=== PATIENT | male | born 1965 | race Caucasian/White ===

== ENCOUNTER 2018-09-21 11:35 | Emergency (ER) | payer MEDICAID, OTHER ==
[2018-09-21 12:23] VITALS: BP 181/91; PULSE 86; RESP 16; TEMP 97.8; O2SAT 100
[2018-09-21 13:30] LABS: BASOPHILS % (AUTO) 1 % (0-3); EOSINOPHILS % (AUTO) 3 % (0-9); HEMATOCRIT 43 % (39-53); HEMOGLOBIN 14.2 gm/dl (13.5-17.7); MEAN CORPUSCULAR HEMOGLOBIN 29.1 pg (27.0-32.0); MEAN CORPUSCULAR HGB CONC 32.8 gm/dl (32.0-36.0); MEAN CORPUSCULAR VOLUME 89 fL (80-100); MONOCYTES % (AUTO) 10.1 % (0-12); NEUTROPHILS % (AUTO) 61.6 % (37-80)
[2018-09-21 13:51] LABS: AMPHETAMINES NEGATIVE (NEGATIVE); BARBITUATES NEGATIVE (NEGATIVE); BENZODIAZEPINES NEGATIVE (NEGATIVE); CANNABINOL(THC) NEGATIVE (NEGATIVE); COCAINE(COC) NEGATIVE (NEGATIVE); METHADONE NEGATIVE (NEGATIVE); METHAMPHETAMINES NEGATIVE (NEGATIVE); OPIATES(OPI) NEGATIVE (NEGATIVE); OXYCODONE(OXY) NEGATIVE (NEGATIVE); PROPOXYPHENE(PPX) NEGATIVE (NEGATIVE); TRICYCLIC ANTIDEPRESSANTS NEGATIVE (NEGATIVE)
[2018-09-21 13:53] LABS: ALBUMIN 3.2 gm/dl (3.4-5.0); ALKALINE PHOSPHATASE 91 IU/L (46-116); ALT 23 IU/L (14-63); AST 19 IU/L (15-37); BILIRUBIN,TOTAL 0.3 mg/dl (0.2-1.0); CALCIUM 8.4 mg/dl (8.5-10.1); CARBON DIOXIDE 31.4 mEq/L (21-32); CHLORIDE 106 mMol/L (98-107); CREATININE 0.99 mg/dl (0.80-1.30); GLUCOSE 87 mg/dl (74-106); SODIUM 141 mMol/L (136-145); THYROID STIMULATING HORMONE 1.032 uIU/ml (0.358-3.740); TOTAL PROTEIN 7.1 gm/dl (6.4-8.2)
[2018-09-21 13:56] LABS: ACETAMINOPHEN < 2 ug/ml (10-30)
[2018-09-21 14:58] LABS: BLOOD UREA NITROGEN 24 mg/dl (7-18)
== END 2018-09-21 15:15 | disposition home or self-care (01) | DRG 882 ==
LOC: ED 11:35
DX: F43.29 Adjustment disorder with other symptoms (principal); S80.12XA Contusion of left lower leg, initial encounter; M79.89 Other specified soft tissue disorders
CPT/HCPCS: 36415; 70450; 73700; 80053; 80305; 80307; 84443; 85025; 99282; 99283

== ENCOUNTER 2018-10-10 13:26 | Emergency (ER) | payer MEDICAID ==
[2018-10-10 14:34] LABS: BASOPHILS % (AUTO) 1 % (0-3); EOSINOPHILS % (AUTO) 3 % (0-9); HEMATOCRIT 48 % (39-53); HEMOGLOBIN 14.9 gm/dl (13.5-17.7); LYMPHOCYTES % (AUTO) 21.1 % (10-50); MEAN CORPUSCULAR HEMOGLOBIN 28.1 pg (27.0-32.0); MEAN CORPUSCULAR HGB CONC 31.2 gm/dl (32.0-36.0); MEAN CORPUSCULAR VOLUME 90 fL (80-100); MONOCYTES % (AUTO) 8.2 % (0-12); NEUTROPHILS % (AUTO) 65.9 % (37-80)
[2018-10-10 14:36] LABS: APPEARANCE,URINE Clear; BILIRUBIN,URINE NEGATIVE (NEGATIVE); COLOR,URINE Dark yellow; GLUCOSE, URINE (UA) NEGATIVE (NEGATIVE); KETONES,URINE TRACE (NEGATIVE); LEUKOCYTE ESTERASE ,URINE NEGATIVE (NEGATIVE); NITRATE,URINE NEGATIVE (NEGATIVE); OCCULT BLOOD,URINE TRACE LYSED (NEG-TRACE); UROBILINOGEN,URINE 0.2 (0.2-1.0 EU)
[2018-10-10 14:41] VITALS: PULSE 89; RESP 20; TEMP 96.6; O2SAT 96
[2018-10-10 14:43] LABS: AMPHETAMINES NEGATIVE (NEGATIVE); BACTERIA RARE (< 1+); BARBITUATES NEGATIVE (NEGATIVE); BENZODIAZEPINES NEGATIVE (NEGATIVE); CANNABINOL(THC) NEGATIVE (NEGATIVE); COCAINE(COC) NEGATIVE (NEGATIVE); CRYSTALS NEGATIVE (0-3 AVE/HPF); EPITHELIAL CELLS 0-2 (SQUAMOUS); METHADONE NEGATIVE (NEGATIVE); METHAMPHETAMINES NEGATIVE (NEGATIVE); OPIATES(OPI) NEGATIVE (NEGATIVE); OXYCODONE(OXY) NEGATIVE (NEGATIVE); PROPOXYPHENE(PPX) NEGATIVE (NEGATIVE); RBC,URINE 0-2 (0-3AV/HPF); TRICYCLIC ANTIDEPRESSANTS NEGATIVE (NEGATIVE); WBC,URINE 0-2 (0-5AV/HPF)
[2018-10-10 14:58] LABS: ALBUMIN 3.6 gm/dl (3.4-5.0); BILIRUBIN,TOTAL 0.3 mg/dl (0.2-1.0); CALCIUM 8.5 mg/dl (8.5-10.1); CARBON DIOXIDE 30.6 mEq/L (21-32); CREATININE 0.97 mg/dl (0.80-1.30); POTASSIUM 3.9 mMol/L (3.5-5.1); THYROID STIMULATING HORMONE 1.048 uIU/ml (0.358-3.740); TOTAL PROTEIN 7.6 gm/dl (6.4-8.2)
[2018-10-10 15:00] LABS: ALCOHOL 0.005 gm/dl (0.000-0.08)
[2018-10-10] MEDS ORDERED: LORAZEPAM 0.5 MG TAB PO ONE (15:20)
[2018-10-10] MEDS ORDERED: LORAZEPAM 0.5 MG TAB ONE (15:27)
[2018-10-10] MEDS ORDERED: DIPHENHYDRAMINE 25 MG CAP PO ONE (15:30)
[2018-10-10] MEDS ORDERED: DIPHENHYDRAMINE 25 MG CAP ONE (15:31)
[2018-10-10] MEDS ORDERED: METOPROLOL TARTRATE 25 MG TAB PO ONE (16:10)
[2018-10-10] MEDS ORDERED: METOPROLOL TARTRATE 25 MG TAB ONE ×2 (16:14)
[2018-10-10] MEDS ORDERED: LORAZEPAM 2 MG/ML SOL IV ONE (16:32)
[2018-10-10] MEDS ORDERED: HALOPERIDOL LACTATE 5 MG/ML SOL IM ONE (16:32)
[2018-10-10] MEDS ORDERED: HALOPERIDOL LACTATE 5 MG/ML SOL ONE (16:33)
[2018-10-10] MEDS ORDERED: LORAZEPAM 2 MG/ML SOL ONE (16:34)
[2018-10-10] MEDS ORDERED: LORAZEPAM 2 MG/ML SOL IM ONE (16:36)
[2018-10-10 18:11] VITALS: BP 161/91
== END 2018-10-10 16:52 | disposition short-term general hospital (02) | DRG 885 ==
LOC: ED 13:26
DX: F29 Unspecified psychosis not due to a substance or known physiological condition (principal)
CPT/HCPCS: 36415; 80053; 80305; 80307; 81001; 84443; 85025; 96372; 99283; 99285; J1630; J2060; A9270-GY

== ENCOUNTER 2018-12-10 12:29 | Emergency (ER) | payer MEDICAID, OTHER ==
[2018-12-10 13:10] LABS: BASOPHILS % (AUTO) 1 % (0-3); EOSINOPHILS % (AUTO) 3 % (0-9); HEMATOCRIT 50 % (39-53); HEMOGLOBIN 16.1 gm/dl (13.5-17.7); LYMPHOCYTES % (AUTO) 23.2 % (10-50); MEAN CORPUSCULAR HEMOGLOBIN 28.3 pg (27.0-32.0); MEAN CORPUSCULAR HGB CONC 32.3 gm/dl (32.0-36.0); MEAN CORPUSCULAR VOLUME 88 fL (80-100); MONOCYTES % (AUTO) 9.4 % (0-12); NEUTROPHILS % (AUTO) 63.6 % (37-80)
[2018-12-10 13:21] VITALS: RESP 18
[2018-12-10 13:34] LABS: ALKALINE PHOSPHATASE 87 IU/L (46-116); ALT 27 IU/L (14-63); AST 15 IU/L (15-37); BILIRUBIN,TOTAL 0.4 mg/dl (0.2-1.0); BLOOD UREA NITROGEN 25 mg/dl (7-18); CALCIUM 8.4 mg/dl (8.5-10.1); CARBON DIOXIDE 30.3 mEq/L (21-32); CHLORIDE 107 mMol/L (98-107); CREATININE 1.08 mg/dl (0.80-1.30); GLUCOSE 116 mg/dl (74-106); POTASSIUM 4.1 mMol/L (3.5-5.1); SALICYLATE < 2.8 mg/dl (2.8-30.0); SODIUM 142 mMol/L (136-145); THYROID STIMULATING HORMONE 0.641 uIU/ml (0.358-3.740); TOTAL PROTEIN 6.8 gm/dl (6.4-8.2)
[2018-12-10 13:45] LABS: ACETAMINOPHEN < 2 ug/ml (10-30); ALCOHOL < 0.003 gm/dl (0.000-0.08)
[2018-12-10 14:36] VITALS: TEMP 97.9
[2018-12-10 14:45] LABS: APPEARANCE,URINE Clear; BILIRUBIN,URINE NEGATIVE (NEGATIVE); COLOR,URINE Yellow; GLUCOSE, URINE (UA) NEGATIVE (NEGATIVE); KETONES,URINE NEGATIVE (NEGATIVE); LEUKOCYTE ESTERASE ,URINE NEGATIVE (NEGATIVE); NITRATE,URINE NEGATIVE (NEGATIVE); OCCULT BLOOD,URINE NEGATIVE (NEG-TRACE); UROBILINOGEN,URINE 0.2 (0.2-1.0 EU)
[2018-12-10 15:03] LABS: AMPHETAMINES NEGATIVE (NEGATIVE); BACTERIA TRACE (< 1+); BARBITUATES NEGATIVE (NEGATIVE); BENZODIAZEPINES NEGATIVE (NEGATIVE); CANNABINOL(THC) NEGATIVE (NEGATIVE); COCAINE(COC) NEGATIVE (NEGATIVE); CRYSTALS NEGATIVE (0-3 AVE/HPF); EPITHELIAL CELLS 0-1 (SQUAMOUS); METHADONE NEGATIVE (NEGATIVE); METHAMPHETAMINES NEGATIVE (NEGATIVE); OPIATES(OPI) NEGATIVE (NEGATIVE); OXYCODONE(OXY) NEGATIVE (NEGATIVE); PROPOXYPHENE(PPX) NEGATIVE (NEGATIVE); RBC,URINE 0-1 (0-3AV/HPF); TRICYCLIC ANTIDEPRESSANTS NEGATIVE (NEGATIVE); WBC,URINE 0-1 (0-5AV/HPF)
[2018-12-10 16:44] VITALS: BP 143/75; PULSE 74; O2SAT 95
== END 2018-12-10 17:35 | disposition short-term general hospital (02) | DRG 881 ==
LOC: ED 12:29
DX: F32.9 Major depressive disorder, single episode, unspecified (principal); F43.9 Reaction to severe stress, unspecified; F43.25 Adjustment disorder with mixed disturbance of emotions and conduct; F29 Unspecified psychosis not due to a substance or known physiological condition
CPT/HCPCS: 36415; 80053; 80305; 80307; 81001; 84443; 85025; 99284; 99291